=== PATIENT | male | born 1955 | race Caucasian/White ===

== ENCOUNTER 2023-12-08 12:58 | Inpatient (IN) | payer MEDICARE, MEDICAID ==
[~2023-12-08] VITALS: Ht 182.9 cm; Wt 82.7 kg
[~2023-12-08 12:58] MED LIST: AMAN100C15 PO; AMLO10TA55 PO; DIPH25CA85 PO; DIVA250T45 PO; RISP3TAB77 PO; TOPI25TA48 PO
[2023-12-08 14:21] LABS: BASOPHILS % (AUTO) 0.9 % (0.0-2.0); EOSINOPHILS % (AUTO) 1.5 % (1.0-6.0); HEMATOCRIT 39.5 % (41-53); LYMPHOCYTES # (AUTO) 1.4 K/uL (1.0-4.8); LYMPHOCYTES % (AUTO) 23.9 % (22.0-44.0); MEAN CORPUSCULAR HEMOGLOBIN 30.6 pg (26.0-34.0); MEAN CORPUSCULAR HGB CONC 32.9 G/dL (31.0-37.0); MEAN CORPUSCULAR VOLUME 93 fL (80-100); MONOCYTES # (AUTO) 0.5 K/uL (0.1-1.0); NEUTROPHILS % (AUTO) 65.7 % (40.0-70.0); PLATELET COUNT (AUTO) 115 K/uL (150-450); RED BLOOD CELL COUNT(AUTO) 4.25 MIL/uL (4.50-5.90); RED CELL DISTRIBUTION WIDTH 15.5 % (11.5-14.5)
[2023-12-08 14:30] LABS: ANION GAP 10 mmol/L (8-16); CALCIUM, TOTAL 8.3 mg/dL (8.8-10.5); CARBON DIOXIDE 24 mmol/L (22-29); CHLORIDE 104 mmol/L (98-107); CREATININE 1.05 mg/dL (0.60-1.30); GLOMERULAR FILTR. RATE CALC > 60 mL/min (>60); GLUCOSE,RANDOM 117 mg/dL (70-110); SODIUM SERUM 138 mmol/L (136-145); UREA NITROGEN, BLOOD 10 mg/dL (7-18)
[2023-12-08 14:31] LABS: ALCOHOL, BLOOD (SERUM) < 3 mg/dL (0-10)
[2023-12-08 14:35] LABS: ALANINE AMINOTRANSFERASE 53 U/L (12-78); ALBUMIN 2.7 g/dL (3.4-5.0); ALKALINE PHOSPHATASE 102 U/L (46-116); ASPARTATE AMINOTRANSFERASE 28 U/L (15-37); BILIRUBIN,TOTAL 0.5 mg/dL (0.1-1.0); TOTAL PROTEIN, SERUM 6.2 g/dL (6.4-8.2)
[2023-12-08 15:02] LABS: COVID AG,FIA SOURCE NASAL SWAB
[2023-12-08 15:17] LABS: ALCOHOL, URINE DRUG SCREEN NEGATIVE (NEGATIVE); AMPHET/METH SCREEN,URINE NEGATIVE (NEGATIVE); BARBITURATE SCREEN, URINE NEGATIVE (NEGATIVE); BENZODIAZEPINES SCREEN,URINE NEGATIVE (NEGATIVE); CANNABINOID SCREEN,URINE NEGATIVE (NEGATIVE); COCAINE SCREEN,URINE NEGATIVE (NEGATIVE); METHADONE SCREEN, URINE NEGATIVE (NEGATIVE); OPIATE SCREEN,URINE NEGATIVE (NEGATIVE); PHENCYCLIDINE SCREEN,URINE NEGATIVE (NEGATIVE)
[2023-12-08 15:25] LABS: SARS-COV2 (COVID) ANTIGEN,FIA Negative (Negative)
[2023-12-08 16:33] LABS: TROPONIN I-HIGH SENSITIVITY 26 ng/L (<76)
[2023-12-08] MEDS ORDERED: PARO-162 PO (17:10)
[2023-12-08] MEDS ORDERED: ATOR10TA69 PO (17:12)
[2023-12-08] MEDS ORDERED: TRIA60LO13 TP (18:33)
[2023-12-08] MEDS ORDERED: TRAZ150T79 PO (18:33)
[2023-12-08] MEDS ORDERED: ZOLP-280 PO (18:33)
[2023-12-08] MEDS ORDERED: DICY10SO PO (18:33)
[2023-12-08] MEDS ORDERED: CYAN500T46 PO (18:33)
[2023-12-08] MEDS ORDERED: OLAN10TA74 PO (18:33)
[2023-12-08] MEDS ORDERED: ACET-784 PO (18:33)
[2023-12-08] MEDS ORDERED: PALI234D IM (18:33)
[2023-12-08] MEDS: MELATONIN 3 MG TABLET PO ONE (21:27)
[2023-12-08] MEDS ORDERED: TUBERCULIN, PURIFIED PROTEIN DERIVATIVE 5 TU/0.1 ML SYRINGE ID ONE (22:45)
[2023-12-08] MEDS ORDERED: LOPERAMIDE HCL 2 MG CAPSULE PO PRN (22:45)
[2023-12-08] MEDS ORDERED: MAG HYDROX/ALUMINUM HYD/SIMETH ES 30 ML SUSPENSION UDCUP PO PRN (22:45)
[2023-12-08] MEDS ORDERED: GuaiFENesin/D-METHORPHAN [SUGAR-FREE] 200-20MG/10 ML SYRUP UDCUP PO PRN (22:45)
[2023-12-08] MEDS ORDERED: MAGNESIUM HYDROXIDE SUSPENSION 30 ML UDCUP PO PRN (22:45)
[2023-12-08] MEDS ORDERED: ACETAMINOPHEN 325 MG TABLET PO PRN (22:45)
[2023-12-08] MEDS ORDERED: HydrOXYzine PAMOATE 50 MG CAPSULE PO PRN (22:45)
[2023-12-09 02:45] VITALS: BP 126/75; PULSE 60; RESP 18; TEMP 97.8; O2SAT 98
[2023-12-09] MEDS: LORazepam 2 MG TABLET PO PRN (04:02)
[2023-12-09] MEDS: FOLIC ACID 1 MG TABLET PO SCH (08:17)
[2023-12-09] MEDS: OMEGA-3/DHA/EPA/FISH OIL 1,000 MG CAPSULE PO SCH (08:17)
[2023-12-09] MEDS: THIAMINE 100 MG TABLET PO SCH (08:17)
[2023-12-09] MEDS: OLANZapine 5 MG RAPDIS TABLET PO PRN (08:17)
[2023-12-09] MEDS: DIVALPROEX SODIUM 500 MG ER TABLET PO SCH (08:17)
[2023-12-09] MEDS: MULTIVITAMINS WITH MINERALS, THERAPEUTIC TABLET PO SCH (08:17)
[2023-12-09 08:31] LABS: HEMOGLOBIN A1C 5.5 % (3.8-5.6)
[2023-12-09 08:45] LABS: CHOL/HDL RATIO 3.3 (4.2-7.3); FREE T4 (FREE THYROXINE) 1.31 ng/dL (0.76-1.46); THYROID STIMULATING HORMONE 3.31 uIU/mL (0.36-3.74)
[2023-12-09] MEDS: FUROSEMIDE 20 MG TABLET PO SCH (11:48)
[2023-12-09 17:18] VITALS: BP 142/66; PULSE 66; TEMP 97.2; O2SAT 98
[2023-12-09] MEDS ORDERED: DICY20TA95 PO (19:28)
[2023-12-09] MEDS: OLANZapine 5 MG RAPDIS TABLET PO SCH (20:33)
[2023-12-09] MEDS: MELATONIN 5 MG TABLET PO SCH (20:33)
[2023-12-09 20:35] VITALS: BP 114/52; PULSE 60; TEMP 97.7; O2SAT 93
[2023-12-10 08:16] VITALS: BP 117/68; PULSE 66; RESP 17; TEMP 97.7; O2SAT 98
[2023-12-10] MEDS: AmLODIPine BESYLATE 2.5 MG TABLET PO SCH (09:15)
[2023-12-10] MEDS: ATORVASTATIN CALCIUM 10 MG TABLET PO SCH (09:16)
[2023-12-10] MEDS: CYANOCOBALAMIN 500 MCG TABLET PO SCH (09:16)
[2023-12-10] MEDS: BACITRACIN 28 GM OINTMENT TP SCH (09:40)
[2023-12-10] MEDS: OLANZapine 10 MG TABLET PO SCH (12:07)
[2023-12-10] MEDS ORDERED: INFLUENZA VIRUS VACCINE QVS 2023-24 (6MO+)/PF 60 MCG/0.5 ML SYRINGE IM. ONE (12:45)
[2023-12-10] MEDS ORDERED: PNEUMOCOCCAL VACCINE POLYVALENT 0.5 ML SYRINGE [PPSV23] IM. ONE (12:45)
[2023-12-10 20:15] VITALS: BP 103/50; PULSE 58; TEMP 98.2; O2SAT 94
[2023-12-10] MEDS: TraZODone HCL 100 MG TABLET PO SCH (22:13)
[2023-12-11] MEDS: PARoxetine HCL 20 MG TABLET PO SCH (08:17)
[2023-12-11 09:00] VITALS: BP 136/60; PULSE 74; RESP 17; TEMP 97.8; O2SAT 98
[2023-12-11 22:04] VITALS: BP 134/62; PULSE 63; RESP 18; TEMP 97.8; O2SAT 95
[2023-12-12] MEDS: ZOLPIDEM TARTRATE 10 MG TABLET PO PRN (02:35)
[2023-12-12 08:21] VITALS: BP 135/66; PULSE 70; RESP 18; TEMP 97.9; O2SAT 96
[2023-12-12 20:12] VITALS: BP 126/81; PULSE 80; RESP 18; TEMP 97.8
[2023-12-13 08:02] VITALS: BP 139/79; PULSE 65; RESP 16; TEMP 98.5; O2SAT 95
[2023-12-13 21:40] VITALS: BP 121/63; PULSE 57; RESP 16; TEMP 98.4; O2SAT 100
[2023-12-14 08:50] VITALS: BP 109/70; PULSE 62; RESP 17; TEMP 97.9; O2SAT 96
[2023-12-14] MEDS: NICOTINE 21 MG/24 HOUR PATCH TD SCH (14:11)
[2023-12-14 20:57] VITALS: BP 136/68; PULSE 76; TEMP 97.8; O2SAT 95
[2023-12-15 08:29] VITALS: BP 119/69; PULSE 95; RESP 17; TEMP 97.4; O2SAT 94
[2023-12-15] MEDS ORDERED: NICOTINE 21 MG/24 HOUR PATCH TD SCH (09:00)
[2023-12-15 20:11] VITALS: BP 98/36; PULSE 60; RESP 15; TEMP 97.8; O2SAT 99
[2023-12-16] MEDS: POTASSIUM CHLORIDE 20 MEQ ER TABLET PO SCH (08:07)
[2023-12-16 08:39] LABS: BASOPHILS % (AUTO) 0.4 % (0.0-2.0); EOSINOPHILS % (AUTO) 0.9 % (1.0-6.0); HEMATOCRIT 43.8 % (41-53); HEMOGLOBIN 14.3 g/dL (13.5-17.5); LYMPHOCYTES # (AUTO) 1.3 K/uL (1.0-4.8); MEAN CORPUSCULAR HEMOGLOBIN 30.8 pg (26.0-34.0); MEAN CORPUSCULAR HGB CONC 32.7 G/dL (31.0-37.0); MEAN CORPUSCULAR VOLUME 94 fL (80-100); MONOCYTES # (AUTO) 0.6 K/uL (0.1-1.0); MONOCYTES % (AUTO) 10.2 % (2.0-9.0); NEUTROPHILS # (AUTO) 3.8 K/uL (1.8-7.7); NEUTROPHILS % (AUTO) 65.5 % (40.0-70.0); PLATELET COUNT (AUTO) 107 K/uL (150-450); RED BLOOD CELL COUNT(AUTO) 4.66 MIL/uL (4.50-5.90); RED CELL DISTRIBUTION WIDTH 16.4 % (11.5-14.5); WHITE BLOOD COUNT (AUTO) 5.8 K/uL (4.5-11.0)
[2023-12-16 08:44] LABS: ALANINE AMINOTRANSFERASE 23 U/L (12-78); ALBUMIN 3.1 g/dL (3.4-5.0); ALKALINE PHOSPHATASE 101 U/L (46-116); ANION GAP 12 mmol/L (8-16); ASPARTATE AMINOTRANSFERASE 18 U/L (15-37); BILIRUBIN,TOTAL 0.7 mg/dL (0.1-1.0); CALCIUM, TOTAL 8.7 mg/dL (8.8-10.5); CARBON DIOXIDE 25 mmol/L (22-29); CHLORIDE 102 mmol/L (98-107); GLOMERULAR FILTR. RATE CALC > 60 mL/min (>60); GLUCOSE,RANDOM 77 mg/dL (70-110); SODIUM SERUM 139 mmol/L (136-145); UREA NITROGEN, BLOOD 19 mg/dL (7-18)
[2023-12-16 08:54] LABS: APPEARANCE,URINE CLEAR (CLEAR); BILIRUBIN,URINE NEGATIVE (NEGATIVE); COLOR,URINE YELLOW (YELLOW); GLUCOSE, URINE (UA) NEGATIVE (NEGATIVE); KETONES,URINE NEGATIVE (NEGATIVE); LEUKOCYTE ESTERASE ,URINE NEGATIVE (NEGATIVE); NITRATE,URINE NEGATIVE (NEGATIVE); OCCULT BLOOD,URINE NEGATIVE (NEGATIVE); PROTEIN,URINE NEGATIVE (NEGATIVE); SPECIFIC GRAVITIY, URINE 1.015 (1.003-1.030); UROBILINOGEN,URINE <=1.0 mg/dL (<=1.0)
[2023-12-16 09:41] LABS: VALPROIC ACID 86 mcg/mL (50-100)
[2023-12-16 09:46] VITALS: BP 136/71; PULSE 70; RESP 18; TEMP 98.6; O2SAT 96
[2023-12-16 20:25] VITALS: BP 104/48; PULSE 54; RESP 16; TEMP 98; O2SAT 94
[2023-12-17 15:55] VITALS: BP 144/81; PULSE 67; RESP 18; TEMP 98.4; O2SAT 95
[2023-12-17 20:25] VITALS: BP 144/81; PULSE 94; RESP 18; TEMP 98; O2SAT 95
[2023-12-18 08:10] VITALS: BP 108/53; PULSE 60; RESP 17; TEMP 97.8; O2SAT 96
[2023-12-18 12:16] VITALS: BP 108/53; PULSE 60; RESP 16; TEMP 97.8; O2SAT 96
[2023-12-18 21:35] VITALS: BP 134/80; PULSE 95; RESP 16; TEMP 97.1; O2SAT 99
[2023-12-19 08:00] VITALS: BP 126/53; PULSE 62; RESP 16; TEMP 98.6; O2SAT 97
[2023-12-19 20:10] VITALS: BP 121/77; PULSE 74; RESP 18; TEMP 97.9
[2023-12-20 08:04] VITALS: BP 125/78; PULSE 72; RESP 17; TEMP 98.4
[2023-12-20 20:08] VITALS: BP 136/70; PULSE 78; RESP 18; TEMP 98
[2023-12-21 08:21] VITALS: BP 104/60; PULSE 88; RESP 17; TEMP 97.6; O2SAT 100
[2023-12-21 20:39] VITALS: BP 126/74; PULSE 69; RESP 18; TEMP 98; O2SAT 96
[2023-12-22 08:39] VITALS: BP 125/68; PULSE 64; RESP 18; TEMP 97.5; O2SAT 95
[2023-12-22 20:10] VITALS: BP 128/68; PULSE 70; RESP 17; TEMP 98.4; O2SAT 100
[2023-12-23 08:10] VITALS: BP 132/82; PULSE 64; RESP 17; TEMP 97.7; O2SAT 97
[2023-12-23 20:59] VITALS: BP 119/63; PULSE 62; TEMP 97.7; O2SAT 96
[2023-12-24 08:27] VITALS: BP 124/57; PULSE 60; RESP 18; TEMP 97; O2SAT 97
[2023-12-24 20:25] VITALS: BP 119/60; PULSE 59; TEMP 98.9; O2SAT 94
[2023-12-25 08:09] VITALS: BP 117/65; PULSE 61; RESP 17; TEMP 97.6; O2SAT 91
[2023-12-25 20:16] VITALS: BP 121/56; PULSE 74; RESP 17; TEMP 96.4; O2SAT 96
[2023-12-26 08:16] VITALS: BP 133/60; PULSE 65; RESP 18; TEMP 97.5; O2SAT 98
[2023-12-26] MEDS ORDERED: BISACODYL 5 MG EC TABLET PO PRN (12:45)
[2023-12-26 21:23] VITALS: BP 136/70; PULSE 68; RESP 18; TEMP 97.1; O2SAT 97
[2023-12-27] MEDS: PROMETHAZINE HCL 25 MG TABLET PO PRN (00:20)
[2023-12-27 08:40] VITALS: BP 120/62; PULSE 68; RESP 18; TEMP 98.3; O2SAT 99
[2023-12-27 20:06] VITALS: BP 139/61; PULSE 69; RESP 18; TEMP 97.7; O2SAT 98
[2023-12-28 08:23] VITALS: BP 121/60; PULSE 80; RESP 17; TEMP 97.9; O2SAT 100
[2023-12-28 20:34] VITALS: BP 138/63; PULSE 68; RESP 19; TEMP 98; O2SAT 95
[2023-12-29 08:31] VITALS: BP 117/62; PULSE 64; RESP 18; TEMP 97.4; O2SAT 93
[2023-12-29] MEDS ORDERED: DIVA500T69 PO (13:45)
[2023-12-29] MEDS ORDERED: TRAZ-257 PO (13:45)
[2023-12-29] MEDS ORDERED: PARO-37 PO (13:45)
[2023-12-29] MEDS ORDERED: OLAN10TA74 PO (13:45)
[2023-12-29] MEDS ORDERED: MELA5TAB40 PO (13:45)
[2023-12-29] MEDS ORDERED: OLAN5TAB94 PO (13:45)
[2023-12-29 21:02] VITALS: BP 112/54; PULSE 84; RESP 16; TEMP 97.8; O2SAT 95
[2023-12-30 08:21] VITALS: BP 119/60; PULSE 60; RESP 17; TEMP 97.6; O2SAT 96
[2023-12-30] MEDS ORDERED: POTA-364 PO (11:46)
[2023-12-30] MEDS ORDERED: FURO-152 PO (11:46)
== END 2023-12-30 15:40 | DRG 885 ==
LOC: EMS 12:58 → B3A 12-09
PROVIDERS: ADMIT Psychiatry & Neurology Child & Adolescent Psychiatry; ATTEND Psychiatry & Neurology Child & Adolescent Psychiatry
PROC: GZHZZZZ Group Psychotherapy (ICD-10-PCS; principal; 2023-12-10)
PROC: GZ52ZZZ Individual Psychotherapy, Cognitive (ICD-10-PCS; 2023-12-10)
DX: F20.0 Paranoid schizophrenia (principal); R45.851 Suicidal ideations; E78.5 Hyperlipidemia, unspecified; Z20.822 Contact with and (suspected) exposure to COVID-19; I10 Essential (primary) hypertension; I95.9 Hypotension, unspecified; D69.6 Thrombocytopenia, unspecified; D64.9 Anemia, unspecified; F17.210 Nicotine dependence, cigarettes, uncomplicated; R79.89 Other specified abnormal findings of blood chemistry
CPT/HCPCS: 80053; 80061; 80164; 80307; 81003; 83036; 83880; 84439; 84443; 84484; 85025; 86592; 93005; 99285; G0480; Q9967